=== PATIENT | male | born 1985 | race Caucasian/White ===

== ENCOUNTER 2019-04-03 09:57 | Inpatient (IN) | payer MEDICAID, OTHER | END 2019-04-06 18:15 | disposition home or self-care (01) | LOC: ER 09:57 → OVERFLOW 09:58 → CENTRAL 19:58 | DX: A41.9 Sepsis, unspecified organism (principal); K59.01 Slow transit constipation; N43.3 Hydrocele, unspecified; N45.3 Epididymo-orchitis ==

== ENCOUNTER 2019-04-07 19:25 | Emergency (ER) | payer MEDICAID ==
[~2019-04-07] VITALS: Ht 185.4 cm; Wt 77.1 kg
[2019-04-07 20:26] VITALS: BP 131/94
== END 2019-04-07 23:56 | disposition left against medical advice (07) ==
LOC: ER 19:28
DX: R06.6 Hiccough (principal); Z53.21 Procedure and treatment not carried out due to patient leaving prior to being seen by health care provider

== ENCOUNTER 2019-10-20 00:25 | Inpatient (IN) | payer SELFPAY ==
[~2019-10-20] VITALS: Ht 185.4 cm; Wt 67.4 kg
[2019-10-20 01:26] LABS: Basophils # (auto) 0.1 uL; Basophils % (auto) 0.4 % (0.0-2.0); Eosinophils # (auto) 0 uL; Eosinophils % (auto) 0.3 % (0.0-7.0); Hematocrit 41.8 % (41.0-53.0); Hemoglobin 14.4 g/dL (13.5-17.5); Lymphocytes # (auto) 1.3 uL; Lymphocytes % (auto) 9.6 % (10.0-50.0); Mean Corpuscular Hemoglobin 31.3 pg (28.0-32.0); Mean Corpuscular Hgb Conc. 34.4 g/dL (32.0-36.0); Monocytes # (auto) 1.4 uL; Monocytes % (auto) 10.2 % (0.0-12.0); Neutrophils % (auto) 79.5 % (37.0-80.0); Nucleated Red Blood Cells % 0.1 %; Platelet Count (auto) 223 10^3/uL (140-450); Red Blood Cells 4.59 10^6/uL (4.5-5.90); Red Cell Distribution Width 12.8 % (11.8-14.3); White Blood Cell 13.9 10^3/uL (4.4-10.8)
[2019-10-20 01:40] LABS: Alanine Aminotransferase 18 U/L (16-61); Albumin 3.5 g/dL (3.4-5.0); Anion Gap 6 (5-15); Aspartate Aminotransferase 15 U/L (15-37); BUN/Creatinine Ratio 14.1; Blood Urea Nitrogen 11 mg/dL (7-18); Calcium 8.9 mg/dL (8.5-10.1); Carbon Dioxide 27 mmol/L (21-32); Chloride 104 mmol/L (98-107); GFR African American 145 mL/min; GFR Non-African American 120 mL/min; Glucose 106 mg/dL (74-106); Potassium 3.8 mmol/L (3.5-5.1); Sodium 137 mmol/L (136-145)
[2019-10-20 01:43] LABS: Urine Amorphous Crystal MOD /hpf (None Seen); Urine Bacteria FEW /hpf (None Seen); Urine Blood 2+ /uL (Negative); Urine Mucus FEW (None Seen); Urine Specific Gravity 1.019 (1.001-1.035); Urine WBC 507 /hpf (0 - 3); Urine WBC Clumps PRESENT /hpf (None Seen)
[2019-10-20 01:45] LABS: Alkaline Phosphatase 63 U/L (45-117); Bilirubin, Total 0.3 mg/dL (0.2-1.0); Total Protein 7.2 g/dL (6.4-8.2)
[2019-10-20] MEDS ORDERED: KETOROLAC TROMETH 30 MG/ML 1ML VIAL IV ONE (02:00)
[2019-10-20] MEDS ORDERED: SODIUM CHLORIDE 0.9% 1,000 ML IV ONE (02:00)
[2019-10-20] MEDS ORDERED: cefTRIAXone 1GM/50ML D5W 50 ML IV ONE ×3 (02:00→12:45)
[2019-10-20 02:49] LABS: Amphetamine Screen, Urine POSITIVE (NEGATIVE); Barbiturate Scree,Urine NEGATIVE (NEGATIVE); Benzodiazephine Screen, Urine NEGATIVE (NEGATIVE); Cannabinoid Screen, Urine NEGATIVE (NEGATIVE); Cocaine Screen, Urine NEGATIVE (NEGATIVE); Opiate Scree,Urine NEGATIVE (NEGATIVE); Phencyclidine Screen, Urine NEGATIVE (NEGATIVE)
[2019-10-20 02:56] LABS: Alcohol, Urine < 3.0 mg/dL (0-5)
[2019-10-20] MEDS ORDERED: SODIUM CHLORIDE 0.9% 1,000 ML IV SCH (09:06)
[2019-10-20] MEDS ORDERED: TEMAZEPAM 15 MG CAP PO PRN (09:15)
[2019-10-20] MEDS ORDERED: DOXYCYCLINE 100MG/250ML 250 ML IV SCH (09:15)
[2019-10-20] MEDS ORDERED: KETOROLAC TROMETH 30 MG/ML 1ML VIAL IV PRN (09:15)
[2019-10-20] MEDS ORDERED: traMADol HCL 50 MG TAB PO PRN (09:15)
[2019-10-20] MEDS ORDERED: PROMETHAZINE HCL 25 MG/ML 1ML IV PRN ×2 (09:15→09:30)
[2019-10-20] MEDS ORDERED: ACETAMINOPHEN 500 MG TAB PO PRN ×2 (09:15→09:30)
--- NOTE | 2019-10-20 09:50 | NUR ---
PATIENT ARRIVED TO UNIT. ORIENTATED TO TRESA PHAN. PATIENT ALSO ORIENTATED TO HOSPITAL SETTING INCLUDING USE OF CALL LIGHT. PATIENT IN NO S/S OF DISTRESS AT THIS TIME. PATIENT REPORTS PAIN 2/10 TO RIGHT TESTICLE. UPON ASSESSMENT, RIGHT TESTICLE FIRM, SWOLLEN AND RED. NO OPEN WOUNDS NOTED. PATIENT UPDATED ON POC. ALL QUESTIONS ANSWERED. BED IN LOWEST LOCKED POSITION, SIDE RAILS UP X2, CALL LIGHT WITHIN REACH.
[2019-10-20] MEDS ORDERED: FAMOTIDINE 20 MG TAB PO SCH (10:00)
[2019-10-20] MEDS ORDERED: ENOXAPARIN SOD 40 MG/0.4 ML SYRINGE SC SCH (10:00)
[2019-10-20] MEDS: SODIUM CHLORIDE 0.9% 1,000 ML IV SCH ×2 (12:30→21:27)
[2019-10-20] MEDS: DOXYCYCLINE 100MG/250ML 250 ML IV SCH ×2 (12:30→21:20)
[2019-10-20] MEDS: FAMOTIDINE 20 MG TAB PO SCH ×2 (12:30→21:20)
[2019-10-20] MEDS: ENOXAPARIN SOD 40 MG/0.4 ML SYRINGE SC SCH (12:31)
[2019-10-20] MEDS: KETOROLAC TROMETH 30 MG/ML 1ML VIAL IV PRN ×2 (12:31→23:19)
[2019-10-20 12:43] VITALS: BP 123/76
[2019-10-20 12:44] VITALS: BP 122/73
[2019-10-20 17:11] VITALS: BP 121/62
--- NOTE | 2019-10-20 19:30 | NUR ---
Opening Shift Note Assumed care of patient, awake and alert. No S/S of distress/SOB or pain. Insructed on POC and to callfor assist PRN, will continue to monitor for changes Q1hr and PRN. Fall and safety precautions in place. Call light within reach.
[2019-10-20] MEDS: traMADol HCL 50 MG TAB PO PRN (21:20)
[2019-10-20 22:00] VITALS: BP 110/59
--- NOTE | 2019-10-20 22:00 | NUR ---
TEMP Patient's oral temp 99.1F. Patient medicated with PRN medication (see emar) and cooling measures applied. Will continue to monitor
[2019-10-20] MEDS: TEMAZEPAM 15 MG CAP PO PRN (23:19)
[2019-10-21 05:52] VITALS: BP 101/68
[2019-10-21] MEDS: SODIUM CHLORIDE 0.9% 1,000 ML IV SCH ×3 (06:06→21:06)
--- NOTE | 2019-10-21 08:20 | NUR ---
OPENING SHIFT NOTE: PATIENT ASLEEP AWOKEN TO NAME A/OX4, RESPIRATIONS EVEN AND UNLABORED. FALL PRECAUTIONS IN PLACE. [facility] [employer] BELOW BLADDER FREE OF KINKS. CALL LIGHT WITHIN REACH, UPDATED ON PLAN OF CARE WILL CONTINUE TO MONITOR.
[2019-10-21 09:00] VITALS: BP 131/64
[2019-10-21] MEDS ORDERED: cefTRIAXone 1GM/50ML D5W 50 ML IV SCH (09:00)
[2019-10-21] MEDS: cefTRIAXone 1GM/50ML D5W 50 ML IV SCH (09:32)
[2019-10-21] MEDS: KETOROLAC TROMETH 30 MG/ML 1ML VIAL IV PRN ×2 (09:49→21:05)
[2019-10-21] MEDS: FAMOTIDINE 20 MG TAB PO SCH ×2 (09:49→21:04)
[2019-10-21] MEDS: traMADol HCL 50 MG TAB PO PRN ×2 (09:49→21:05)
[2019-10-21] MEDS: ENOXAPARIN SOD 40 MG/0.4 ML SYRINGE SC SCH (09:50)
[2019-10-21] MEDS: DOXYCYCLINE 100MG/250ML 250 ML IV SCH (10:43)
--- NOTE | 2019-10-21 10:43 | NUR ---
NIC[facility]LE CONTACT [phone] ATTEMPTING TO REACH PATIENT. PATIENT DOES NOT WISH TO SET UP PASSWORD OR TALK AT THIS TIME.
--- NOTE | 2019-10-21 10:56 | NUR ---
FISHING ROD MARKER AT BEDSIDE.
[2019-10-21 13:00] VITALS: BP 97/52
--- NOTE | 2019-10-21 15:00 | NUR ---
MATERIALS AWARE OF ORDER FOR LARGE JOSE STRANiels. CONFIRMED TECH TO BRING TO [facility].
--- NOTE | 2019-10-21 19:22 | NUR ---
CARE ENDORSED TO JORY GTZ.
[2019-10-21] MEDS: TEMAZEPAM 15 MG CAP PO PRN (21:05)
[2019-10-21 22:00] VITALS: BP 100/70
[2019-10-21] MEDS ORDERED: DOXYCYCLINE 100 MG TAB/CAP PO SCH (22:00)
[2019-10-22 05:21] VITALS: BP 115/67
--- NOTE | 2019-10-22 07:40 | NUR ---
Opening Note Received report from housekeeping assistant RN. Patient is resting in bed, easy to wake by calling name. Patient states pain 8/10 and is requesting pain medication. Will medicate per MD orders. Patient is on room air, respirations even and unlabored. Reviewed plan of care with patient, patient verbalized understanding. Bed in low and locked position, call light within reach. Will continue to monitor Q1 hour and PRN.
[2019-10-22] MEDS: cefTRIAXone 1GM/50ML D5W 50 ML IV SCH (08:19)
[2019-10-22] MEDS: traMADol HCL 50 MG TAB PO PRN ×2 (08:25→17:14)
[2019-10-22] MEDS: KETOROLAC TROMETH 30 MG/ML 1ML VIAL IV PRN ×2 (08:26→17:14)
[2019-10-22 09:00] VITALS: BP 121/58
--- NOTE | 2019-10-22 09:50 | NUR ---
Urine sample collected and sent to lab
[2019-10-22] MEDS: CIPROFLOXACIN HCL 500 MG TAB PO SCH ×2 (09:56→21:38)
[2019-10-22] MEDS: FAMOTIDINE 20 MG TAB PO SCH ×2 (09:56→21:38)
[2019-10-22] MEDS: ENOXAPARIN SOD 40 MG/0.4 ML SYRINGE SC SCH (09:58)
--- NOTE | 2019-10-22 13:35 | NUR ---
Dr. Layne at bedside Reviewing plan of care with patient and this RN. Will continue to monitor Q1 hour and PRN.
[2019-10-22] MEDS: SODIUM CHLORIDE 0.9% 1,000 ML IV SCH ×2 (13:45→21:27)
--- NOTE | 2019-10-22 19:05 | NUR ---
Closing Note Report given to mine shifter RN. No signs or symptoms of distress noted at this time.
[2019-10-22] MEDS: TEMAZEPAM 15 MG CAP PO PRN (21:38)
[2019-10-22 22:00] VITALS: BP 119/67
[2019-10-23] MEDS: KETOROLAC TROMETH 30 MG/ML 1ML VIAL IV PRN (05:44)
[2019-10-23] MEDS: traMADol HCL 50 MG TAB PO PRN (05:45)
[2019-10-23 05:52] VITALS: BP 113/70
[2019-10-23 09:00] VITALS: BP 102/69
[2019-10-23] MEDS: ENOXAPARIN SOD 40 MG/0.4 ML SYRINGE SC SCH (11:08)
[2019-10-23] MEDS: CIPROFLOXACIN HCL 500 MG TAB PO SCH ×2 (11:08→21:46)
[2019-10-23] MEDS: FAMOTIDINE 20 MG TAB PO SCH ×2 (11:08→21:46)
[2019-10-23] MEDS: SODIUM CHLORIDE 0.9% 1,000 ML IV SCH (11:08)
[2019-10-23 13:00] VITALS: BP 95/43
--- NOTE | 2019-10-23 13:49 | NUR ---
Nutrition Assessment Notes Please refer to the link for full assessment notes Est energy needs: 0971-2993 kcals (25-30 kcal/kg BW) Est protein needs: 58-72 gms/day (0.8-1.0 gm/kg BW) Will continue to monitor and reassess prn Addendum: 10/23/19 at [address] Amended: Links added.
[2019-10-23 16:49] VITALS: BP 97/52
[2019-10-23 22:35] VITALS: BP 120/72
[2019-10-24 05:54] VITALS: BP 121/72
--- NOTE | 2019-10-24 07:30 | NUR ---
Opening Shift Note RECEIVED REPORT FROM NOC RN. Assumed care of patient, awake and alert. No S/S of distress/SOB or pain. BED IN LOWEST, LOCKED POSITION WITH SIDERAILS UP x2 AND CALL LIGHT WITHIN REACH. Instructed on POC and to call for assist PRN, will continue to monitor for changes Q1hr and PRN.
[2019-10-24 08:23] VITALS: BP 96/54
[2019-10-24] MEDS ORDERED: DOXYCYCLINE 100 MG TAB/CAP PO SCH (10:00)
[2019-10-24] MEDS ORDERED: DOX100T PO (10:21)
--- NOTE | 2019-10-24 10:45 | NUR ---
Gaviria catheter dc'd Order to discontinue Gaviria catheter. Gaviria dc'd with clean technique following deflation of balloon. Patient tolerated well with no complaints of pain. Continue care.
[2019-10-24] MEDS: CIPROFLOXACIN HCL 500 MG TAB PO SCH (11:07)
[2019-10-24] MEDS: ENOXAPARIN SOD 40 MG/0.4 ML SYRINGE SC SCH (11:07)
[2019-10-24] MEDS: FAMOTIDINE 20 MG TAB PO SCH (11:07)
[2019-10-24 12:34] VITALS: BP 116/64
[2019-10-24 12:47] VITALS: BP 96/54
== END 2019-10-24 13:36 | disposition home or self-care (01) | DRG 728 ==
LOC: EDBD 00:25 → EDUNIT# 00:25 → ER 00:26 → OVERFLOW 00:27 → ER 09:24 → WEST WING 10:23 → UNDODISIN 10:30
PROVIDERS: ADMIT Internal Medicine; ATTEND Internal Medicine
DX: N45.3 Epididymo-orchitis (principal); N12 Tubulo-interstitial nephritis, not specified as acute or chronic; A56.01 Chlamydial cystitis and urethritis; E86.0 Dehydration; F15.10 Other stimulant abuse, uncomplicated; F17.210 Nicotine dependence, cigarettes, uncomplicated; N50.89 Other specified disorders of the male genital organs; Z90.49 Acquired absence of other specified parts of digestive tract; R31.9 Hematuria, unspecified
CPT/HCPCS: 36415; 74176; 76870; 80053; 80307; 81001; 83605; 84484; 85025; 87040; 87086; G0378; J0696; J1885; J3490

== ENCOUNTER 2020-12-28 18:41 | Emergency (ER) | payer MEDICAID ==
[~2020-12-28] VITALS: Ht 188 cm; Wt 77.1 kg
[~2020-12-28 18:41] MED LIST: DOX100T PO
[2020-12-28] MEDS ORDERED: HYDROmorphone HCL 2 MG/ML VL IM ONE (19:00)
[2020-12-28] MEDS ORDERED: ONDANSETRON HCL 4 MG/2 ML VIAL IM ONE (19:00)
[2020-12-28 22:40] VITALS: BP 133/86
== END 2020-12-28 23:08 | disposition home or self-care (01) ==
LOC: EDBD 18:41 → ER 18:44
DX: M54.5 Low back pain (principal); F17.210 Nicotine dependence, cigarettes, uncomplicated
CPT/HCPCS: 72131; 96372; 99284; J1170; J2405